=== PATIENT | male | born 1955 | race Caucasian/White ===

== ENCOUNTER 2019-09-21 09:03 | Day surgery (SDC) | payer MEDICARE, BC ==
[~2019-09-21 09:03] MED LIST: Acetaminophen 325 MG Tab PO SCH; Bisacodyl 5 MG Tab PO PRN; Lactated Ringers 1,000 ML IV SCH; Lidocaine 1%/Sod Bicarbonate in NS 8.4% 1 ML Syringe IDERM PRN; Magnesium Hydroxide 400 MG/5 ML Susp 30 ML Cup PO PRN; Morphine 2 MG/ML SYRINGE IVPUSH PRN; Morphine Sulfate 8 MG, EPINEPHrine 0.3 MG, Cefuroxime 750 MG, Ketorolac 30 MG, Sodium C... PRN; Naloxone 0.4 MG/ML SDV IVPUSH PRN; Ondansetron 4 MG/2 ML SDV IVPUSH PRN; Pregabalin 25 MG Cap PO SCH; Sennosides 8.6 MG Tab PO PRN; Sodium Chloride 0.9% 10 ML Syringe FLUSH PRN; oxyCODONE ER 10 MG TAB.ER PO SCH
[2019-09-21] MEDS ORDERED: Iodine/Sodium Iodide 2% Tincture 30 ML Bottle ONE (09:30)
[2019-09-21] MEDS ORDERED: Bupivacaine 0.25% 10 ML SDV ONE (09:30)
[2019-09-21] MEDS ORDERED: ceFAZolin 1 GM Vial ONE ×2 (09:30→09:55)
[2019-09-21] MEDS ORDERED: Vancomycin 1 GM SDV ONE (09:30)
--- NOTE | 2019-09-21 09:30 | PCM.PREANE ---
Preanesthetic Assessment - Procedure Proposed Procedure: right total knee replacement - Anesthesia/Transfusion/Family Hx Anesthesia History: Prior Anesthesia Without Reaction Family History of Anesthesia Reaction: No Transfusion History: No Prior Transfusion(s) - Review of Systems General: No Symptoms Pulmonary: No Symptoms Cardiovascular: No Symptoms Gastrointestinal: No Symptoms Neurological: No Symptoms Other: Reports: None, Sinus Problem (allergic rhinitis) - Physical Assessment NPO Status Date: 09/20/19 NPO Status Time: 19:00 Vital Signs: 136/103 79 96% 16 97.6 Height: 5 ft 10 in Weight: 101.3 kg ASA Class: 2 Mental Status: Alert & Oriented x3 Airway Class: Mallampati = 2 Dentition: Reports: Normal Dentition Thyro-Mental Finger Breadths: 3 Mouth Opening Finger Breadths: 3 ROM/Head Extension: Full Lungs: Clear to Auscultation, Normal Respiratory Effort Cardiovascular: Regular Rate, Regular Rhythm - Lab Values: Laboratory Last Values MRSA (PCR) Negative 09/15/19 14:54 - Allergies Allergies/Adverse Reactions: Allergies Allergy/AdvReac Type Severity Reaction Status Date / Time No Known Allergies Allergy Verified 09/20/19 06:53 - Blood Blood Available: No - Acknowledgements Anesthesia Type Planned: Spinal Pt an Appropriate Candidate for the Planned Anesthesia: Yes Alternatives and Risks of Anesthesia Discussed w Pt/Guardian: Yes Pt/Guardian Understands and Agrees with Anesthesia Plan: Yes PreAnesthesia Questionnaire HEENT History: Reports: Other (See Below) (wears glasses) Cardiovascular History: Reports: High Cholesterol Respiratory History: Reports: None, Sleep Apnea (cpap) Gastrointestinal History: Reports: GERD (used to not now) Psychiatric History: Reports: None Oncologic (Cancer) History: Reports: None - Past Surgical History Neurological Surgical History: Reports: Other (See Below) (back surgery- L4-5 fused 2012) Musculoskeletal Surgical History: Reports: Other (See Below) (right arm surgery) - History Comment History Comment: lipitor home meds - SUBSTANCE USE Smoking Status *Q: Never Smoker Tobacco Use Within Last Twelve Months: No Second Hand Smoke Exposure: No Days Per Week of Alcohol Use: 1 Recreational Drug Use History: No - CURRENT (IN HOUSE) MEDS Current Meds: Current Medications Acetaminophen (Tylenol) 975 mg PO ONETIME MICHAEL Stop: 09/21/19 14:00 Aspirin (Ecotrin) 325 mg PO BID MICHAEL Bisacodyl (Dulcolax) 5 mg PO DAILY PRN PRN Reason: Constipation Morphine Sulfate 8 mg/Epinephrine HCl 0.3 mg/Cefuroxime Sodium 750 mg/Ketorolac Tromethamine 30 mg/Sodium Chloride 7.9 ml 0 mg .XX ASDIRECTED PRN PRN Reason: Pain Stop: 09/21/19 12:00 Cyclobenzaprine HCl (Flexeril) 10 mg PO TID PRN PRN Reason: Spasms Docusate Sodium (Colace) 100 mg PO BID MICHAEL Famotidine (Pepcid) 20 mg PO Q12H [facility] Lactated Ringer's (Ringers, Lactated) 1,000 mls @ 125 mls/hr IV ASDIRECTED MICHAEL Stop: 09/21/19 23:00 Cefazolin Sodium/Dextrose 2 gm (/ Premix) 50 mls @ 100 mls/hr IV Q8H [facility] Stop: 09/21/19 23:29 Ketorolac Tromethamine (Toradol) 15 mg IVPUSH Q6H PRN PRN Reason: Pain Lidocaine/Sodium Bicarbonate (Buffered Lidocaine 1% In Ns 8.4%) 0.25 ml IDERM ONETIME PRN PRN Reason: Prior to IV Start Stop: 09/21/19 18:00 Magnesium Hydroxide (Milk Of Magnesia) 30 ml PO BID PRN PRN Reason: Constipation Morphine Sulfate (Morphine) 2 mg IVPUSH Q2H PRN PRN Reason: Breakthrough Pain Naloxone HCl (Narcan) 0.1 mg IVPUSH Q5M PRN PRN Reason: Oversedation Ondansetron HCl (Zofran) 4 mg IVPUSH Q6H PRN PRN Reason: Nausea/Vomiting Oxycodone HCl (Oxycontin) 10 mg PO ONETIME [facility] Stop: 09/21/19 14:00 Oxycodone/Acetaminophen (Percocet 325-5 Mg) 1 - 2 tab PO Q4H PRN PRN Reason: Pain Pregabalin (Lyrica) 50 mg PO ONETIME [facility] Stop: 09/21/19 14:00 Senna (Senna) 8.6 mg PO BID PRN PRN Reason: Constipation Sodium Chloride (Saline Flush) 10 ml FLUSH ASDIRECTED PRN PRN Reason: Keep Vein Open Stop: 09/21/19 18:00
[2019-09-21] MEDS ORDERED: Lidocaine 1% 4 ML ONE (09:54)
[2019-09-21] MEDS ORDERED: Propofol 200 MG/20 ML SDV ONE (09:55)
[2019-09-21] MEDS ORDERED: Midazolam 1 MG/ML 2 ML SDV ONE ×2 (09:55→10:40)
[2019-09-21] MEDS ORDERED: Ondansetron 4 MG/2 ML SDV ONE (09:55)
[2019-09-21] MEDS ORDERED: fentaNYL 100 MCG/2 ML SDV ONE (09:55)
[2019-09-21] MEDS ORDERED: Lactated Ringers 1,000 ML ONE (10:57)
[2019-09-21] MEDS ORDERED: Ondansetron 4 MG/2 ML SDV IVPUSH PRN (11:54)
[2019-09-21] MEDS ORDERED: Ketorolac 30 MG/ML SDV ONE (11:58)
[2019-09-21] MEDS ORDERED: Ropivacaine 0.5% 5 MG/ML 30 ML SDV ONE (12:28)
[2019-09-21] MEDS ORDERED: EPINEPHrine 1 MG/ML SDV ONE (12:28)
--- NOTE | 2019-09-21 12:33 | PCM.POSTAN ---
POST ANESTHESIA ASSESSMENT - MENTAL STATUS Mental Status: Alert, Oriented - VITAL SIGNS Vital Signs: Last Vital Signs Temp 36.4 C 09/21/19 09:00 Pulse 79 09/21/19 09:00 Resp 16 09/21/19 09:00 BP 136/103 H 09/21/19 09:00 Pulse Ox 96 09/21/19 09:00 - RESPIRATORY Respiratory Status: Respiratory Rate WNL, Airway Patent, O2 Saturation Stable - CARDIOVASCULAR CV Status: Pulse Rate WNL, Blood Pressure Stable - GASTROINTESTINAL GI Status: No Symptoms - PAIN Pain Score: 0 - POST OP HYDRATION Hydration Status: Adequate & Stable
--- NOTE | 2019-09-21 12:58 | PCM.SN.2 ---
- Free Text/Narrative Note: Right selective femoral nerve block at the adductor canal for post-procedure pain control under US guidance requested by Dr. Du. Date: 09/21/19 Time Out: 1235 Start: 1236 End: 1241 Chart reviewed. Consent signed. Questions answered. Appropriate monitors applied. Time out performed. The skin was prepped with chlorahexadine times 1. Right mid-shaft femur identified with ultrasound, scanning medially of femur, the femoral artery in the adductor canal visualized, and the femoral nerve located laterally to the artery. The skin was prepped lateral to the ultrasound probe with chlorahexadine times one. The 21ga 4 insulated block needle was inserted under direct ultrasound guidance into the adductor canal. Positive blood aspiration with first aspiration attempt. Needle redirected. 25mL of 0.5% ropivacaine with 1:200,000 epinephrine was injected circumferentially around the nerve with intermittent negative aspiration noted. Patient tolerated the procedure well. Sterile technique noted along with sterile gloves, mask, and sterile probe cover. See picture on progress note and vital signs on nurses notes. Block completed in PACU. Shalom Alcala CRNA
--- NOTE | 2019-09-21 13:11 | PCM48HPAN ---
Post Anesthesia Note - EVALUATION WITHIN 48HRS OF ANESTHETIC Vital Signs in Normal Range: Yes Patient Participated in Evaluation: Yes Respiratory Function Stable: Yes Airway Patent: Yes Cardiovascular Function Stable: Yes Hydration Status Stable: Yes Pain Control Satisfactory: Yes Nausea and Vomiting Control Satisfactory: Yes Mental Status Recovered: Yes Vital Signs: Last Vital Signs Temp 36.3 C 09/21/19 12:40 Pulse 72 09/21/19 12:55 Resp 11 L 09/21/19 12:55 BP 125/81 09/21/19 12:55 Pulse Ox 97 09/21/19 12:55
[2019-09-21] MEDS: Acetaminophen/oxyCODONE 325-5 MG Tab PO PRN ×3 (14:28→22:58)
--- NOTE | 2019-09-21 15:05 | CR ---
Right knee: AP and lateral views of the right knee were obtained. Comparison: No prior knee exam. Knee prosthesis is seen. Components are aligned. Underlying bony structures are intact. Soft tissue are noted from the surgical procedure. Impression: 1. Satisfactory postop radiographic appearance of recently placed right knee prosthesis. Diagnostic code #2 This report was dictated in MDT
[2019-09-21] MEDS: ceFAZolin 2 GM in Premix Bag 1 BAG IV SCH (18:00)
[2019-09-21] MEDS: Docusate Sodium 100 MG Cap PO SCH (20:16)
[2019-09-21] MEDS: Famotidine 20 MG Tab PO SCH (20:16)
[2019-09-21] MEDS: Ketorolac 15 MG/ML SDV IVPUSH PRN (20:40)
[2019-09-22] MEDS: Cyclobenzaprine 10 MG Tab PO PRN ×2 (01:42→10:36)
[2019-09-22] MEDS: ceFAZolin 2 GM in Premix Bag 1 BAG IV SCH ×2 (01:43→10:28)
[2019-09-22] MEDS: Ketorolac 15 MG/ML SDV IVPUSH PRN ×2 (02:18→09:19)
[2019-09-22] MEDS: Acetaminophen/oxyCODONE 325-5 MG Tab PO PRN ×2 (02:58→06:56)
[2019-09-22] MEDS ORDERED: Acetaminophen 325 MG Tab PO PRN (07:39)
--- NOTE | 2019-09-22 07:48 | PCM.SURGPN ---
- General Info Date of Service: 09/22/19 POD#: 1 Functional Status: Reports: Tolerating Diet, Ambulating, Urinating, Incentive Spirometry, Other (The pt reports to nursing that he has increased pain this morning.) - Review of Systems Pulmonary: Denies: Shortness of Breath, Cough Cardiovascular: Denies: Chest Pain Gastrointestinal: Denies: Abdominal Pain Genitourinary: Reports: Other (Pt states he is urinating without complaint.) - Patient Data Vitals - Most Recent: Last Vital Signs Temp 98.6 F 09/22/19 03:01 Pulse 80 09/22/19 03:01 Resp 18 09/22/19 03:01 BP 103/68 09/22/19 03:01 Pulse Ox 93 L 09/22/19 03:01 Weight - Most Recent: 223 lb 5.252 oz I&O - Last 24 Hours: Intake & Output 09/21/19 09/22/19 09/22/19 22:59 06:59 14:59 Intake Total 200 Output Total 0 Balance 200 Lab Results Last 24 Hrs: Laboratory Results - last 24 hr 09/22/19 09/22/19 Range/Units 05:32 05:32 WBC 6.70 (4.23-9.07) K/mm3 RBC 3.95 L (4.63-6.08) M/mm3 Hgb 11.5 L (13.7-17.5) gm/dl Hct 36.2 L (40.1-51.0) % MCV 91.6 (79.0-92.2) fl MCH 29.1 (25.7-32.2) pg MCHC 31.8 L (32.2-35.5) g/dl RDW Std Deviation 48.3 H (35.1-43.9) fL Plt Count 180 (163-337) K/mm3 MPV 9.3 L (9.4-12.3) fl Sodium 137 (136-145) mEq/L Potassium 4.1 (3.5-5.1) mEq/L Chloride 104 (98-107) mEq/L Carbon Dioxide 27 (21-32) mEq/L Anion Gap 10.1 (5-15) BUN 18 (7-18) mg/dL Creatinine 1.2 (0.7-1.3) mg/dL Est Cr Clr Drug Dosing 63.37 mL/min Estimated GFR (MDRD) > 60 (>60) mL/min BUN/Creatinine Ratio 15.0 (14-18) Glucose 116 H (80-115) mg/dL Calcium 7.9 L (8.5-10.1) mg/dL Total Bilirubin 0.3 (0.2-1.0) mg/dL AST 11 L (15-37) U/L ALT 17 (16-63) U/L Alkaline Phosphatase 46 (46-116) U/L Total Protein 5.3 L (6.4-8.2) g/dl Albumin 2.6 L (3.4-5.0) g/dl Globulin 2.7 gm/dL Albumin/Globulin Ratio 1.0 (1-2) Med Orders - Current: Current Medications Acetaminophen (Tylenol) 650 mg PO Q4H PRN PRN Reason: Pain Aspirin (Ecotrin) 325 mg PO BID [facility] Bisacodyl (Dulcolax) 5 mg PO DAILY PRN PRN Reason: Constipation Cyclobenzaprine HCl (Flexeril) 10 mg PO TID PRN PRN Reason: Spasms Last Admin: 09/22/19 01:42 Dose: 10 mg Documented by: Docusate Sodium (Colace) 100 mg PO BID [facility] Last Admin: 09/21/19 20:16 Dose: 100 mg Documented by: Famotidine (Pepcid) 20 mg PO Q12H [facility] Last Admin: 09/21/19 20:16 Dose: 20 mg Documented by: Cefazolin Sodium/Dextrose 2 gm (/ Premix) 50 mls @ 100 mls/hr IV Q8H [facility] Stop: 09/22/19 10:29 Last Admin: 09/22/19 01:43 Dose: 100 mls/hr Documented by: Ketorolac Tromethamine (Toradol) 15 mg IVPUSH Q6H PRN PRN Reason: Pain Last Admin: 09/22/19 02:18 Dose: 15 mg Documented by: Magnesium Hydroxide (Milk Of Magnesia) 30 ml PO BID PRN PRN Reason: Constipation Morphine Sulfate (Morphine) 2 mg IVPUSH Q2H PRN PRN Reason: Breakthrough Pain Naloxone HCl (Narcan) 0.1 mg IVPUSH Q5M PRN PRN Reason: Oversedation Ondansetron HCl (Zofran) 4 mg IVPUSH Q6H PRN PRN Reason: Nausea/Vomiting Oxycodone HCl (Oxycodone) 5 - 15 mg PO Q4H PRN PRN Reason: Pain Senna (Senna) 8.6 mg PO BID PRN PRN Reason: Constipation Simvastatin (Zocor) 5 mg PO DAILY [facility] Vit A/Vit C/Vit E/Selen/Cu/Zn/Lutei (Icaps Mv) 1 tab PO DAILY [facility] Discontinued Medications Acetaminophen (Tylenol) 975 mg PO ONETIME MICHAEL Stop: 09/21/19 14:00 Last Admin: 09/21/19 09:25 Dose: 975 mg Documented by: Bupivacaine HCl (Sensorcaine-Mpf 0.25%) Confirm Administered Dose 30 ml .ROUTE .STK-MED ONE Stop: 09/21/19 09:31 Last Admin: 09/21/19 12:00 Dose: 30 ml Documented by: Cefazolin Sodium (Ancef) Confirm Administered Dose 2 gm .ROUTE .STK-MED ONE Stop: 09/21/19 09:31 Last Admin: 09/21/19 11:53 Dose: 2 gm Documented by: Cefazolin Sodium (Ancef) Confirm Administered Dose 2 gm .ROUTE .STK-MED ONE Stop: 09/21/19 09:56 Morphine Sulfate 8 mg/Epinephrine HCl 0.3 mg/Cefuroxime Sodium 750 mg/Ketorolac Tromethamine 30 mg/Sodium Chloride 7.9 ml 0 mg .XX ASDIRECTED PRN PRN Reason: Pain Stop: 09/21/19 12:00 Last Admin: 09/21/19 12:00 Dose: 788.3 mg Documented by: Epinephrine HCl (Adrenalin) Confirm Administered Dose 1 mg .ROUTE .STK-MED ONE Stop: 09/21/19 12:29 Fentanyl (Sublimaze) Confirm Administered Dose 100 mcg .ROUTE .STK-MED ONE Stop: 09/21/19 09:56 Lactated Ringer's (Ringers, Lactated) 1,000 mls @ 125 mls/hr IV ASDIRECTED MICHAEL Stop: 09/21/19 23:00 Last Admin: 09/21/19 09:25 Dose: 125 mls/hr Documented by: Lidocaine HCl (Xylocaine-Mpf 1%) Confirm Administered Dose 4 mls @ as directed .ROUTE .STK-MED ONE Stop: 09/21/19 09:55 Lactated Ringer's (Ringers, Lactated) Confirm Administered Dose 1,000 mls @ as directed .ROUTE .STK-MED ONE Stop: 09/21/19 10:58 Iodine (Iodine 2% Mild Tincture) Confirm Administered Dose 30 ml .ROUTE .STK-MED ONE Stop: 09/21/19 09:31 Last Admin: 09/21/19 11:51 Dose: 18 ml Documented by: Ketorolac Tromethamine (Toradol) Confirm Administered Dose 30 mg .ROUTE .STK-MED ONE Stop: 09/21/19 11:59 Lidocaine/Sodium Bicarbonate (Buffered Lidocaine 1% In Ns 8.4%) 0.25 ml IDERM ONETIME PRN PRN Reason: Prior to IV Start Stop: 09/21/19 18:00 Last Admin: 09/21/19 09:34 Dose: 0.25 ml Documented by: Midazolam HCl (Versed 1 Mg/Ml) Confirm Administered Dose 2 mg .ROUTE .STK-MED ONE Stop: 09/21/19 09:56 Midazolam HCl (Versed 1 Mg/Ml) Confirm Administered Dose 2 mg .ROUTE .STK-MED ONE Stop: 09/21/19 10:41 Non-Formulary Medication (Ubidecarenone) 1 cap PO DAILY MICHAEL Ondansetron HCl (Zofran) Confirm Administered Dose 4 mg .ROUTE .STK-MED ONE Stop: 09/21/19 09:56 Ondansetron HCl (Zofran) 4 mg IVPUSH ONETIME PRN PRN Reason: Nausea/Vomiting Stop: 09/21/19 16:00 Oxycodone HCl (Oxycontin) 10 mg PO ONETIME [facility] Stop: 09/21/19 14:00 Last Admin: 09/21/19 09:25 Dose: 10 mg Documented by: Oxycodone/Acetaminophen (Percocet 325-5 Mg) 1 - 2 tab PO Q4H PRN PRN Reason: Pain Last Admin: 09/22/19 06:56 Dose: 2 tab Documented by: Pregabalin (Lyrica) 50 mg PO ONETIME MICHAEL Stop: 09/21/19 14:00 Last Admin: 09/21/19 09:25 Dose: 50 mg Documented by: Propofol (Diprivan 20 Ml) Confirm Administered Dose 600 mg .ROUTE .STK-MED ONE Stop: 09/21/19 09:56 Ropivacaine (Naropin 0.5%) Confirm Administered Dose 30 ml .ROUTE .STK-MED ONE Stop: 09/21/19 12:29 Sodium Chloride (Saline Flush) 10 ml FLUSH ASDIRECTED PRN PRN Reason: Keep Vein Open Stop: 09/21/19 18:00 Tranexamic Acid (Cyklokapron) Confirm Administered Dose 1,000 mg .ROUTE .STK-MED ONE Stop: 09/21/19 09:31 Last Admin: 09/21/19 12:05 Dose: 1,000 mg Documented by: Vancomycin HCl (Vancomycin) Confirm Administered Dose 1 gm .ROUTE .STK-MED ONE Stop: 09/21/19 09:31 Last Admin: 09/21/19 12:02 Dose: 1 gm Documented by: - Exam Wound/Incisions: Dressing Dry and Intact General: Alert, Cooperative, No Acute Distress Lungs: Normal Respiratory Effort Extremities: Other (NVS intact for BLE. Sherie's negative for BLE.) Sepsis Event Note - Evaluation Sepsis Screening Result: No Definite Risk - Focused Exam Vital Signs: Vital Signs Temp Pulse Resp BP Pulse Ox 09/22/19 03:01 98.6 F 80 18 103/68 93 L 09/21/19 22:54 98.2 F 82 114/65 95 09/21/19 20:13 98.1 F 120/71 Date Exam was Performed: 09/22/19 Time Exam was Performed: 07:46 - Problem List Review Problem List Initiated/Reviewed/Updated: Yes - My Orders Last 24 Hours: Active Orders 24 hr Category Date Time Status Patient Status [ADT] Routine ADT 09/21/19 06:49 Active Ambulate [RC] DAILY Care 09/21/19 06:48 Active Antiembolic Devices [RC] BID Care 09/21/19 06:49 Active Communication Order [RC] ASDIRECTED Care 09/22/19 07:41 Ordered Communication Order [RC] DAILY Care 09/21/19 11:54 Active May Shower [RC] DAILY Care 09/21/19 06:48 Active Notify Provider [RC] PRN Care 09/21/19 11:54 Active Oxygen Therapy [RC] PRN Care 09/21/19 06:49 Active Pulse Oximetry [RC] ASDIRECTED Care 09/21/19 11:54 Active RT Incentive Spirometry [RC] Q1HWA Care 09/21/19 06:48 Active Ready for Discharge [RC] PER UNIT ROUTINE Care 09/22/19 07:46 Ordered Up to Chair [RC] DAILY Care 09/21/19 06:48 Active Vital Signs [RC] Q4HR Care 09/21/19 06:49 Active OT Evaluation and Treatment [CONS] Routine Cons 09/21/19 06:48 Active PT Evaluation and Treatment [CONS] Routine Cons 09/21/19 06:48 Active Regular Diet [DIET] Diet 09/21/19 Lunch Active Acetaminophen [Tylenol] Med 09/22/19 07:39 Ordered 650 mg PO Q4H PRN Aspirin [Ecotrin] Med 09/22/19 09:00 Active 325 mg PO BID Cyclobenzaprine [Flexeril] Med 09/21/19 06:48 Active 10 mg PO TID PRN Docusate Sodium [Colace] Med 09/21/19 21:00 Active 100 mg PO BID Famotidine [Pepcid] Med 09/21/19 21:00 Active 20 mg PO Q12H Ketorolac [Toradol] Med 09/21/19 18:00 Active 15 mg IVPUSH Q6H PRN Magnesium Hydroxide [Milk of Magnesia] Med 09/21/19 06:48 Active 30 ml PO BID PRN Morphine Med 09/21/19 06:48 Active 2 mg IVPUSH Q2H PRN Multivitamins/Min/FA/Lut/Zeax [ICaps MV] Med 09/22/19 09:00 Active 1 tab PO DAILY Naloxone [Narcan] Med 09/21/19 06:48 Active 0.1 mg IVPUSH Q5M PRN Ondansetron [Zofran] Med 09/21/19 06:48 Active 4 mg IVPUSH Q6H PRN Sennosides [Senna] Med 09/21/19 06:48 Active 8.6 mg PO BID PRN Simvastatin [Zocor] Med 09/22/19 09:00 Active 5 mg PO DAILY bisacodyL [Dulcolax] Med 09/21/19 06:48 Active 5 mg PO DAILY PRN ceFAZolin [Ancef] 2 gm Med 09/21/19 18:00 Active Premix Bag 1 bag IV Q8H oxyCODONE Med 09/22/19 07:39 Ordered 5 - 15 mg PO Q4H PRN Antiembolic Hose [OM.PC] Per Unit Routine Oth 09/21/19 06:50 Ordered Antiembolic Hose [OM.PC] Routine Oth 09/21/19 06:48 Ordered Ice Therapy [OM.PC] Per Unit Routine Oth 09/21/19 06:49 Ordered Sequential Compression Device [OM.PC] Per Unit Routine Oth 09/21/19 06:48 Ordered Resuscitation Status Routine Resus Stat 09/21/19 06:48 Ordered Medication Orders Acetaminophen (Tylenol) 650 mg PO Q4H PRN PRN Reason: Pain Aspirin (Ecotrin) 325 mg PO BID [facility] Bisacodyl (Dulcolax) 5 mg PO DAILY PRN PRN Reason: Constipation Cyclobenzaprine HCl (Flexeril) 10 mg PO TID PRN PRN Reason: Spasms Last Admin: 09/22/19 01:42 Dose: 10 mg Documented by: GIGI Docusate Sodium (Colace) 100 mg PO BID [facility] Last Admin: 09/21/19 20:16 Dose: 100 mg Documented by: ZENY Famotidine (Pepcid) 20 mg PO Q12H [facility] Last Admin: 09/21/19 20:16 Dose: 20 mg Documented by: ZENY Cefazolin Sodium/Dextrose 2 gm (/ Premix) 50 mls @ 100 mls/hr IV Q8H [facility] Stop: 09/22/19 10:29 Last Admin: 09/22/19 01:43 Dose: 100 mls/hr Documented by: Infusion: 09/21/19 18:30 Dose: 100 mls/hr Documented by: Admin: 09/21/19 18:00 Dose: 100 mls/hr Documented by: CAROLINA Ketorolac Tromethamine (Toradol) 15 mg IVPUSH Q6H PRN PRN Reason: Pain Last Admin: 09/22/19 02:18 Dose: 15 mg Documented by: Admin: 09/21/19 20:40 Dose: 15 mg Documented by: ZENY Magnesium Hydroxide (Milk Of Magnesia) 30 ml PO BID PRN PRN Reason: Constipation Morphine Sulfate (Morphine) 2 mg IVPUSH Q2H PRN PRN Reason: Breakthrough Pain Naloxone HCl (Narcan) 0.1 mg IVPUSH Q5M PRN PRN Reason: Oversedation Ondansetron HCl (Zofran) 4 mg IVPUSH Q6H PRN PRN Reason: Nausea/Vomiting Oxycodone HCl (Oxycodone) 5 - 15 mg PO Q4H PRN PRN Reason: Pain Senna (Senna) 8.6 mg PO BID PRN PRN Reason: Constipation Simvastatin (Zocor) 5 mg PO DAILY MICHAEL Vit A/Vit C/Vit E/Selen/Cu/Zn/Lutei (Icaps Mv) 1 tab PO DAILY [facility] - Assessment Assessment (Free Text/Narrative):: POD#1 - right TKA - Plan Plan (Free Text/Narrative):: 1. Hgb 11.5. 2. ASA 325mg PO BID, frequent mobility, TEDs. 3. d/c Perc and will trial oxycodone 5mg 1 to 3 tab PO every 4 hours for pain management. Pt may have acetaminophen. 4. Outpatient therapy. The pt's case was discussed with Dr. Du.
--- NOTE | 2019-09-22 07:54 | PCM48HPAN ---
Post Anesthesia Note - EVALUATION WITHIN 48HRS OF ANESTHETIC Vital Signs in Normal Range: Yes Patient Participated in Evaluation: Yes Respiratory Function Stable: Yes Airway Patent: Yes Cardiovascular Function Stable: Yes Hydration Status Stable: Yes Pain Control Satisfactory: Yes (Hurts but tolerating it and wants to go home. ) Nausea and Vomiting Control Satisfactory: Yes Mental Status Recovered: Yes Vital Signs: Last Vital Signs Temp 37.0 C 09/22/19 03:01 Pulse 80 09/22/19 03:01 Resp 18 09/22/19 03:01 BP 103/68 09/22/19 03:01 Pulse Ox 93 L 09/22/19 03:01
[2019-09-22] MEDS: oxyCODONE 5 MG Tab PO PRN ×2 (08:38→12:13)
[2019-09-22] MEDS ORDERED: UBIDECARENONE PO SCH (09:00)
[2019-09-22] MEDS ORDERED: Simvastatin 10 MG Tab PO SCH (09:00)
[2019-09-22] MEDS ORDERED: Aspirin 325 MG Tab.EC PO SCH (09:00)
[2019-09-22] MEDS ORDERED: Multivitamins with Minerals/Folic Acid/Lutein/Zeaxanth Tab PO SCH (09:00)
[2019-09-22] MEDS: Famotidine 20 MG Tab PO SCH (09:19)
[2019-09-22] MEDS: Docusate Sodium 100 MG Cap PO SCH (09:19)
--- NOTE | 2019-09-24 07:50 | PCM.OPNOTE ---
- General Post-Op/Procedure Note Date of Surgery/Procedure: 09/21/19 Operative Procedure(s): right total knee arthroplasty Pre Op Diagnosis: right knee osteoarthrosis Post-Op Diagnosis: Same Anesthesia Technique: Local, MAC, Spinal Primary Surgeon: Babar Du Anesthesia Provider: Shalom Alcala Carpet Or Rug Layer Helper: Tamiko Mo Carpet Or Rug Layer Helper: Zulema Ruth in mLs: 450 Complications: None Condition: Good Free Text/Narrative:: 6 5 9mm 35x10
--- NOTE | 2019-09-24 08:13 | OR ---
DATE OF OPERATION: 09/21/2019 SURGEON: Babar Du MD OPERATION PERFORMED: Right total knee arthroplasty. PREOPERATIVE DIAGNOSIS: Right knee osteoarthrosis. POSTOPERATIVE DIAGNOSIS: Right knee osteoarthrosis. ANESTHESIA: Local MAC with spinal. ANESTHESIA PROVIDER: Shalom Alcala CRNA [employer]DEL [employer]KER APPRENTICE: Tamiko Mo PA-C; and Zulema Ruth LPN. ESTIMATED BLOOD LOSS: 450 mL. COMPLICATIONS: None. CONDITION: Stable. IMPLANTS: 1. [place] size 6 press-fit CR femur. 2. Mellissa size 5 press-fit tibial base plate. 3. [place] size 5 9 mm CS polyethylene insert. 4. Mellissa size 35 x 10 mm press fit asymmetric patella. DESCRIPTION OF PROCEDURE: The patient was identified in the preop holding area. Proper site was marked and identified by the surgeon. The patient was taken back to the operating theater. After adequate anesthesia, the patient's right lower extremity had a nonsterile tourniquet applied and it was sterilely prepped and draped in the usual sterile fashion. OR time-out was performed. The patient received 2 g IV Ancef. At this time, the right lower extremity was exsanguinated. Tourniquet was insufflated to 300 mmHg. Standard medial parapatellar incision was made. Medial parapatellar arthrotomy was created. Deep fibers of the MCL were raised and anterior fat pad was resected. At this time, attention was turned to the patella. Patella measured 25, it was resected to a 14 for a 35 x 10 mm patella. Drill holes were then drilled and found to be in adequate position. The drill was then drilled in the distal femur and the intramedullary distal femoral cutting guide was then placed. 8 mm was resected off the distal femur and was found to be an adequate resection. Sizing guide was placed. It was found to be a size 6 press-fit CR femur that was shown on the implant record at the beginning of this dictation. The drill holes were drilled for the epicondylar axis using Whitesides line and epicondyles as reference. At this time, the 4-in- 1 cutting block was placed. An anterior posterior and anterior and posterior chamfer cuts were then completed. Attention was turned to the tibia. The posterior medial lateral retractors were placed. The extramedullary tibial guide was placed. It was placed in the old footprint of the ACL. It was aligned with the center of the ankle and 0 degrees of slope, 9 mm was then resected off the unaffected side. There was found to be an acceptable reduction. At this time, posterior osteophytes were removed along with medial and lateral meniscus. A trial implant was placed with a correct sized tibia that was mentioned at the beginning of the dictation. A Mellissa size 5 9 mm CS polyethylene insert was then placed. The patient's knee was brought through range of motion. The patella was tracking centrally and was stable to varus and valgus stress. Alignment was found to be roughly at 0 degrees. The tibia was stamped and drilled in proper rotation. The universal tibial base plate was impacted in place. Next, the Mellissa size 6 press-fit CR femur impacted into place and the [place] size 5 9 mm CS polyethylene insert was placed. The patient's knee was brought into full extension. The patella was then press-fit in place at this time. Tourniquet was deflated. One liter dilute Betadine solution was irrigated through the knee along with 3 L of pulse lavage irrigation with Ancef. Periarticular injection was then completed. The patient's knee was brought through a range of motion. Knee was found to be stable to varus valgus stress, the patella was tracking centrally with full range of motion. At this time, a #2 barbed suture was used for closure of the medial parapatellar arthrotomy. Topical tranexamic acid was placed. 2-0 Vicryl was used subcutaneously, Prineo was used for the skin. The patient tolerated the procedure well and was sent to the PACU in stable condition. GUERDA /[id number] MTDD
== END 2019-09-22 13:47 | disposition home or self-care (01) ==
LOC: JD.SDS 09:03 → JD.MS 09:05 → JD.SDS 09-22 13:47
PROVIDERS: ATTEND Orthopaedic Surgery
DX: M17.11 Unilateral primary osteoarthritis, right knee (principal); G89.29 Other chronic pain; E78.00 Pure hypercholesterolemia, unspecified; K21.9 Gastro-esophageal reflux disease without esophagitis; E78.2 Mixed hyperlipidemia; G47.33 Obstructive sleep apnea (adult) (pediatric); R23.3 Spontaneous ecchymoses; M85.89 Other specified disorders of bone density and structure, multiple sites; Z79.899 Other long term (current) drug therapy; Z99.89 Dependence on other enabling machines and devices
CPT/HCPCS: 27447; 36415; 73560; 80053; 85027; 87641; 97110; 97116; 97161; 97165; 97535; A9270; C1776; J0171; J0690; J0697; J1885; J2001; J2250; J2270; J2405; J2704; J2795; J3010; J3370; J3490; J7120; 01402; 64450

== ENCOUNTER → 2019-11-23 | Day surgery (SDC) | payer MEDICARE, BC ==
[~2019-11-23] MED LIST changes: +Aspirin 325 MG Tab.EC PO SCH; +Bupivacaine 0.25% 10 ML SDV ONE; +Cyclobenzaprine 10 MG Tab PO PRN; +Docusate Sodium 100 MG Cap PO SCH; +EPINEPHrine 1 MG/ML SDV ONE; +Famotidine 20 MG Tab PO SCH; +Ketorolac 15 MG/ML SDV IVPUSH PRN; -Lactated Ringers 1,000 ML IV SCH; +Lactated Ringers 1,000 ML ONE; +Midazolam 1 MG/ML 2 ML SDV ONE; -Morphine 2 MG/ML SYRINGE IVPUSH PRN; +Morphine 8 MG, EPINEPHrine 0.3 MG, Cefuroxime 750 MG, Ketorolac 30 MG, Sodium Chloride ... PRN; -Morphine Sulfate 8 MG, EPINEPHrine 0.3 MG, Cefuroxime 750 MG, Ketorolac 30 MG, Sodium C... PRN; -Naloxone 0.4 MG/ML SDV IVPUSH PRN; +Ondansetron 4 MG/2 ML SDV ONE; +Propofol 200 MG/20 ML SDV ONE; +Ropivacaine 0.5% 5 MG/ML 30 ML SDV ONE; +Vancomycin 1 GM SDV ONE; +ceFAZolin 1 GM Vial ONE; +ceFAZolin 2 GM in Premix Bag 1 BAG IV SCH; +fentaNYL 100 MCG/2 ML SDV IVPUSH PRN; +fentaNYL 100 MCG/2 ML SDV ONE
[2019-11-23] MEDS: Lactated Ringers 1,000 ML IV SCH ×2 (11:00→14:43)
--- NOTE | 2019-11-23 11:03 | PCM.PREANE ---
Preanesthetic Assessment - Anesthesia/Transfusion/Family Hx Anesthesia History: Prior Anesthesia Without Reaction Family History of Anesthesia Reaction: No Transfusion History: No Prior Transfusion(s) - Review of Systems General: Other (has tested positive for covid in past) Pulmonary: Other (MORENO with CPAP usage at night) Cardiovascular: No Symptoms Gastrointestinal: Other (GERD, gastritis) Neurological: Other (hx of back surgery) Other: Reports: None - Physical Assessment NPO Status Date: 11/22/19 NPO Status Time: 17:30 Weight: 99.7 kg ASA Class: 2 Mental Status: Alert & Oriented x3 Airway Class: Mallampati = 2 Dentition: Reports: Normal Dentition Thyro-Mental Finger Breadths: 3 Mouth Opening Finger Breadths: 3 ROM/Head Extension: Full Lungs: Clear to Auscultation, Normal Respiratory Effort Cardiovascular: Regular Rate, Regular Rhythm - Lab Values: Laboratory Last Values MRSA (PCR) Negative 11/18/19 14:25 - Allergies Allergies/Adverse Reactions: Allergies Allergy/AdvReac Type Severity Reaction Status Date / Time No Known Allergies Allergy Verified 11/20/19 14:06 - Blood Blood Available: No Product(s) Available: None - Anesthesia Plan Pre-Op Medication Ordered: None - Acknowledgements Anesthesia Type Planned: Spinal Pt an Appropriate Candidate for the Planned Anesthesia: Yes Alternatives and Risks of Anesthesia Discussed w Pt/Guardian: Yes Pt/Guardian Understands and Agrees with Anesthesia Plan: Yes PreAnesthesia Questionnaire HEENT History: Reports: Allergic Rhinitis, Hard of Hearing, Sinusitis, Other (See Below) Other HEENT History: wears glasses Cardiovascular History: Reports: High Cholesterol Respiratory History: Reports: Sleep Apnea Gastrointestinal History: Reports: Diverticulosis, Gastritis, GERD, Other (See Below) Other Gastrointestinal History: colon neoplasm, reflux, thrombosed hemorrhoids Genitourinary History: Reports: Other (See Below) Other Genitourinary History: hematuria, frequency CLAIM TAKER History: Reports: None Musculoskeletal History: Reports: Osteoarthritis, Other (See Below) Other Musculoskeletal History: olcranon bursitis, left knee pain, crush injury Neurological History: Reports: Other (See Below) Other Neuro History: spinal stenosis Psychiatric History: Reports: None Endocrine/Metabolic History: Reports: None Hematologic History: Reports: None Immunologic History: Reports: None Oncologic (Cancer) History: Reports: None Dermatologic History: Reports: Other (See Below) Other Dermatologic History: nevus - Past Surgical History HEENT Surgical History: Reports: Oral Surgery Cardiovascular Surgical History: Reports: None Respiratory Surgical History: Reports: None GI Surgical History: Reports: Colonoscopy, Other (See Below) Other GI Surgeries/Procedures: polypectomy Female Surgical History: Reports: None Male Surgical History: Reports: None Endocrine Surgical History: Reports: None Neurological Surgical History: Reports: Other (See Below) Other Neurological Surgeries/Procedures: L4L5 fusion Musculoskeletal Surgical History: Reports: Other (See Below) Other Musculoskeletal Surgeries/Procedures:: RTK, right arm surgery Oncologic Surgical History: Reports: None Dermatological Surgical History: Reports: None - History Comment History Comment: lipitor home meds - SUBSTANCE USE Smoking Status *Q: Never Smoker Recreational Drug Use History: No - HOME MEDS Home Medications: Home Meds Ubidecarenone [Co Q-10] 1 cap PO DAILY 09/21/19 [History] Vit A/Vit C/Vit E/Zinc/Copper [Preservision Areds Softgel] 1 cap PO DAILY 09/21/19 [History] atorvaSTATin [Lipitor] 5 mg PO DAILY 09/21/19 [History] Cholecalciferol (Vitamin D3) [Vitamin D3] 5,000 unit PO DAILY 11/20/19 [History] Multivitamin 1 tab PO DAILY 11/20/19 [History] Aspirin [Ecotrin EC] 325 mg PO BID #84 tab.ec 11/23/19 [Rx] Cyclobenzaprine [Flexeril] 10 mg PO BID PRN #20 tablet 11/23/19 [Rx] Docusate Sodium [Colace] 100 mg PO BID cap 11/23/19 [Rx] Famotidine [Pepcid] 20 mg PO Q12H tablet 11/23/19 [Rx] Magnesium Hydroxide [Milk of Magnesia] 30 ml PO BID PRN cup 11/23/19 [Rx] Sennosides [Senna] 8.6 mg PO BID PRN tablet 11/23/19 [Rx] Tapentadol HCl [Nucynta] 50 - 100 mg PO Q4H PRN #40 tablet 11/23/19 [Rx] bisacodyL [Dulcolax] 5 mg PO DAILY PRN tablet 11/23/19 [Rx] - CURRENT (IN HOUSE) MEDS Current Meds: Current Medications Acetaminophen (Tylenol) 975 mg PO ONETIME [facility] Stop: 11/23/19 16:00 Last Admin: 11/23/19 10:48 Dose: 975 mg Documented by: Aspirin (Ecotrin) 325 mg PO BID MICHAEL Bisacodyl (Dulcolax) 5 mg PO DAILY PRN PRN Reason: Constipation Morphine Sulfate 8 mg/Epinephrine HCl 0.3 mg/Cefuroxime Sodium 750 mg/Ketorolac Tromethamine 30 mg/Sodium Chloride 7.9 ml 0 mg .XX ASDIRECTED PRN PRN Reason: Pain Stop: 11/23/19 14:00 Cyclobenzaprine HCl (Flexeril) 10 mg PO TID PRN PRN Reason: Spasms Docusate Sodium (Colace) 100 mg PO BID MICHAEL Famotidine (Pepcid) 20 mg PO Q12H [facility] Lactated Ringer's (Ringers, Lactated) 1,000 mls @ 125 mls/hr IV ASDIRECTED MICHAEL Stop: 11/23/19 23:00 Cefazolin Sodium/Dextrose 2 gm (/ Premix) 50 mls @ 100 mls/hr IV Q8H [facility] Stop: 11/23/19 22:29 Ketorolac Tromethamine (Toradol) 15 mg IVPUSH Q6H PRN PRN Reason: Pain Lidocaine/Sodium Bicarbonate (Buffered Lidocaine 1% In Ns 8.4%) 0.25 ml IDERM ONETIME PRN PRN Reason: Prior to IV Start Stop: 11/23/19 18:00 Magnesium Hydroxide (Milk Of Magnesia) 30 ml PO BID PRN PRN Reason: Constipation Oxycodone HCl (Oxycontin) 10 mg PO ONETIME [facility] Stop: 11/23/19 14:00 Last Admin: 11/23/19 10:48 Dose: 10 mg Documented by: Pregabalin (Lyrica) 50 mg PO ONETIME [facility] Stop: 11/23/19 14:00 Last Admin: 11/23/19 10:48 Dose: 50 mg Documented by: Senna (Senna) 8.6 mg PO BID PRN PRN Reason: Constipation Sodium Chloride (Saline Flush) 10 ml FLUSH ASDIRECTED PRN PRN Reason: Keep Vein Open Stop: 11/23/19 18:00 Discontinued Medications Cefazolin Sodium (Ancef) Confirm Administered Dose 1 gm .ROUTE .STK-MED ONE Stop: 11/23/19 09:40 Epinephrine HCl (Adrenalin) Confirm Administered Dose 1 mg .ROUTE .STK-MED ONE Stop: 11/23/19 07:46 Fentanyl (Sublimaze) Confirm Administered Dose 100 mcg .ROUTE .STK-MED ONE Stop: 11/23/19 09:37 Lactated Ringer's (Ringers, Lactated) Confirm Administered Dose 1,000 mls @ as directed .ROUTE .STK-MED ONE Stop: 11/23/19 09:36 Midazolam HCl (Versed 1 Mg/Ml) Confirm Administered Dose 2 mg .ROUTE .STK-MED ONE Stop: 11/23/19 09:37 Ondansetron HCl (Zofran) Confirm Administered Dose 4 mg .ROUTE .STK-MED ONE Stop: 11/23/19 09:36 Propofol (Diprivan 20 Ml) Confirm Administered Dose 600 mg .ROUTE .STK-MED ONE Stop: 11/23/19 09:37 Ropivacaine (Naropin 0.5%) Confirm Administered Dose 30 ml .ROUTE .STK-MED ONE Stop: 11/23/19 07:46
--- NOTE | 2019-11-23 13:55 | PCM.POSTAN ---
POST ANESTHESIA ASSESSMENT - MENTAL STATUS Mental Status: Alert, Oriented - VITAL SIGNS Vital Signs: Last Vital Signs Temp 36.6 C 11/23/19 10:40 Pulse 77 11/23/19 10:40 Resp 16 11/23/19 10:40 BP 145/97 H 11/23/19 10:40 Pulse Ox 98 11/23/19 10:40 - RESPIRATORY Respiratory Status: Respiratory Rate WNL, Airway Patent, O2 Saturation Stable, Supplemental Oxygen - CARDIOVASCULAR CV Status: Pulse Rate WNL, Blood Pressure Stable - GASTROINTESTINAL GI Status: No Symptoms - PAIN Pain Score: 0 - POST OP HYDRATION Hydration Status: Adequate & Stable
--- NOTE | 2019-11-23 14:12 | PCM.SN.2 ---
- Free Text/Narrative Note: Left selective femoral nerve block at the adductor canal for post-procedure pain control under US guidance requested by Dr. Du. Date: 11/23/19 Time Out: 1403 Start: 1403 End: 1406 Chart reviewed. Consent signed. Questions answered. Appropriate monitors applied. Time out performed. Left mid-shaft femur identified with ultrasound, scanning medially of femur, the femoral artery in the adductor canal visualized, and the femoral nerve located laterally to the artery. The skin was prepped lateral to the ultrasound probe with chlorahexadine times two. The 21ga 4 insulated block needle was inserted under direct ultrasound guidance into the adductor canal. 25mL of 0.5% ropivacaine with 1:200,000 epinephrine was injected circumferentially around the nerve with intermittent negative aspiration noted. Patient tolerated the procedure well. Sterile technique noted along with sterile gloves, mask, and sterile probe cover. See picture on progress note and vital signs on nurses notes. Block completed in PACU.
--- NOTE | 2019-11-23 15:17 | PCM48HPAN ---
Post Anesthesia Note - EVALUATION WITHIN 48HRS OF ANESTHETIC Vital Signs in Normal Range: Yes Patient Participated in Evaluation: Yes Respiratory Function Stable: Yes Airway Patent: Yes Cardiovascular Function Stable: Yes Hydration Status Stable: Yes Pain Control Satisfactory: Yes Nausea and Vomiting Control Satisfactory: Yes Mental Status Recovered: Yes Vital Signs: Last Vital Signs Temp 36.5 C 11/23/19 14:50 Pulse 56 L 11/23/19 14:50 Resp 16 11/23/19 14:50 BP 123/81 11/23/19 14:50 Pulse Ox 97 11/23/19 14:50
--- NOTE | 2019-11-23 15:34 | CR ---
Left knee: AP and lateral views of the left knee were obtained. Comparison: No prior left knee study. Knee prosthesis is seen. Components are aligned. Soft tissue air is noted from the surgical procedure. Underlying bony structures are intact. Impression: 1. Satisfactory postop radiographic appearance of recently placed left knee prosthesis. Diagnostic code #1 This report was dictated in MDT
--- NOTE | 2019-11-23 17:22 | PCM.OPNOTE ---
- General Post-Op/Procedure Note Date of Surgery/Procedure: 11/23/19 Operative Procedure(s): left total knee arthroplasty Pre Op Diagnosis: left knee osteoarthrosis Post-Op Diagnosis: Same Anesthesia Technique: Local, MAC, Spinal Primary Surgeon: Babar Du Anesthesia Provider: Marie Fitzgerald Photo Booth Operator: Tamiko Mo EBL in mLs: 250 Complications: None Condition: Good Free Text/Narrative:: Intake & Output 11/23/19 11/23/19 11/23/19 06:59 14:59 22:59 Intake Total 150 Balance 150 6 femur 5 tibia 9mm 35x10 press fit
--- NOTE | 2019-11-25 11:30 | PCM.SN.2 ---
- Free Text/Narrative Note: Date: 11/25/2019 Time Out: 0854 Start: 0858 Stop: 902 Surgical Procedure: Left Reverse Total shoulder arthroplasty Diagnosis Left Rotator cuff arthropathy Current Procedure: Right interscalene block under US guidance for postoperative pain control requested by Dr. Du. Patient chart reviewed, risk/benefits discussed with patient, consent obtained. Patient positioned supine, monitors/alarms on, oxygen placed via nasal cannula at 2 LPM. IV sedation administered: Versed 2 mg IV, Fentanyl 100 mcg IV given in preop prior to block placement. Left shoulder prepped with two chloropreps. Sterile drapes placed with aseptic technique noted. Under US guidance, right subclavian artery visualized along with the right brachial plexus. Plexus followed up to C6 cricoid level, and area localized with 3 mls of 1% lidocaine. 22gauge 2 inch stimiplex needle advanced under US with 0.6mV with stimulation of biceps noted. Good stimulation noted with decreased voltage and absent at 0.3mVs. 1ml of Normal Saline injected with loss of stimulation noted to confirm needle not placed intraneurally. Incremental dosing of 5mls with negative aspiration noted prior to each injection of 0.5% ropivacaine with 1:200,000 epinephrine. Total volume=30mls. Tolerated procedure well. Please refer to nurses noted for vital signs. Shalom Alcala CRNA
--- NOTE | 2019-11-30 09:32 | OR ---
DATE OF OPERATION: 11/23/2019 SURGEON: Babar Du MD OPERATION PERFORMED: Left total knee arthroplasty. PREOPERATIVE DIAGNOSIS: Left knee osteoarthrosis. POSTOPERATIVE DIAGNOSIS: Left knee osteoarthrosis. ANESTHESIA: Local MAC with spinal. ANESTHESIA PROVIDER: Marie Fitzgerald CRNA SURGICAL SCRUB TECHNICIAN: Tamiko Mo PA-C ESTIMATED BLOOD LOSS: 250 mL. COMPLICATIONS: None. CONDITION: Stable. IMPLANTS: 1. Mellissa size 6 press-fit CR femur. 2. [place] size 5 press-fit tibial base plate. 3. Mellissa size 5, 9 mm CS polyethylene insert. 4. Mellissa size 35 x 10 mm press-fit asymmetric patella. DESCRIPTION OF PROCEDURE: The patient was identified in the preop holding area. Proper site was marked and identified by the surgeon. The patient was taken back to the operating theater. After adequate anesthesia, the patient's left lower extremity had a nonsterile tourniquet applied and it was sterilely prepped and draped in the usual sterile fashion. OR time-out was performed. The patient received 2 g IV Ancef. At this time, the left lower extremity was exsanguinated. Tourniquet was insufflated to 300 mmHg. Standard medial parapatellar incision was made. Medial parapatellar arthrotomy was created. Deep fibers of the MCL were raised and anterior fat pad was resected. At this time, attention was turned to the patella. Patella measured 25, it was resected to a 15 for a 35 x 10 mm patella. Drill holes were then drilled and found to be in adequate position. The drill was then drilled in the distal femur and the intramedullary distal femoral cutting guide was then placed. 8 mm was resected off the distal femur and was found to be an adequate resection. Sizing guide was placed. It was found to be a size 6 press-fit CR femur that was shown on the implant record at the beginning of this dictation. The drill holes were drilled for the epicondylar axis using [place]ites[place] line and epicondyles as reference. At this time, the 4-in- 1 cutting block was placed. An anterior posterior and anterior and posterior chamfer cuts were then completed. Attention was turned to the tibia. The posterior medial lateral retractors were placed. The extramedullary tibial guide was placed. It was placed in the old footprint of the ACL. It was aligned with the center of the ankle and 0 degrees of slope, 9 mm was then resected off the unaffected side. There was found to be an acceptable reduction. At this time, posterior osteophytes were removed along with medial and lateral meniscus. A trial implant was placed with a correct sized tibia that was mentioned at the beginning of the dictation. A [place] size 5, 9 mm CS polyethylene insert was then placed. The patient's knee was brought through range of motion. The patella was tracking centrally and was stable to varus and valgus stress. Alignment was found to be roughly at 0 degrees. The tibia was stamped and drilled in proper rotation. The universal tibial base plate was impacted in place. Next, the [place] size 6 press-fit CR femur impacted into place and the [place] size 5, 9 mm CS polyethylene insert was placed. The patient's knee was brought into full extension. The patella was then press-fit in place at this time. Tourniquet was deflated. Irricept was irrigated through the knee. One liter dilute Betadine solution was irrigated through the knee along with 3 L of pulse lavage irrigation with Ancef. Periarticular injection was then completed. The patient's knee was brought through a range of motion. Knee was found to be stable to varus valgus stress, the patella was tracking centrally with full range of motion. At this time, a #2 barbed suture was used for closure of the medial parapatellar arthrotomy. Topical tranexamic acid was placed. 2-0 Vicryl was used subcutaneously, Prineo was used for the skin. The patient tolerated the procedure well and was sent to the PACU in stable condition. GUERDA /[id number] NIA
== END | disposition home or self-care (01) ==
LOC: JD.SDS 10:42
PROVIDERS: ATTEND Orthopaedic Surgery
DX: M17.12 Unilateral primary osteoarthritis, left knee (principal); E78.2 Mixed hyperlipidemia; G47.33 Obstructive sleep apnea (adult) (pediatric); M48.061 Spinal stenosis, lumbar region without neurogenic claudication; G89.18 Other acute postprocedural pain; K21.9 Gastro-esophageal reflux disease without esophagitis; Z86.010 Personal history of colon polyps; Z82.49 Family history of ischemic heart disease and other diseases of the circulatory system; Z79.899 Other long term (current) drug therapy; Z79.82 Long term (current) use of aspirin
CPT/HCPCS: 27447; 73560; 87641; 97110; 97116; 97161; A9270; C1776; J0171; J0690; J0697; J1885; J2250; J2270; J2405; J2704; J2795; J3370; J3490; J7120; 01402; 64450; J3010

== ENCOUNTER 2019-11-24 09:21 | Emergency (ER) | payer MEDICARE, BC ==
--- NOTE | 2019-11-24 09:51 | EDM.PDOC ---
ED HPI GENERAL MEDICAL PROBLEM - General Chief Complaint: ENT Problem Stated Complaint: SWOLLEN EPIGLOTTIS/THROAT PROBLEMS Time Seen by Provider: 11/24/19 09:37 Source of Information: Reports: Patient History Limitations: Reports: No Limitations - History of Present Illness INITIAL COMMENTS - FREE TEXT/NARRATIVE: 64-year-old male presents to the ED for evaluation of sore throat. He feels a swelling in the back of his throat even with talking. Patient did undergo a left total knee replacement in our hospital yesterday. He therefore was intubated for general anesthesia. He denies any change in his voice. Not short of breath. He reports he does use a CPAP machine at nighttime to help sleep and it was off for a few hours during the night. He feels a pressure discomfort in the back of his throat with some difficulty swallowing. Occasional cough which is nonproductive. Onset: Gradual Onset Date: 11/24/19 (First appreciated pressure in the back of his throat about 2200 hrs. last night.) Duration: Hour(s):, Getting Worse Location: Reports: Face (Feels a pressure discomfort or swelling in the back of his throat. Denies cough or sputum production) Quality: Reports: Other (Swelling pressure more) Severity: Moderate (burning discomfort with swallowing.) Improves with: Reports: Rest Worsens with: Reports: Other (Swallowing.) Context: Reports: Trauma (Patient did undergo general anesthetic yesterday for left total knee replacement and was intubated of course. Therefore he is potentially suffered trauma to his epiglottis and uvula). Denies: Activity, Exercise, Lifting, Sick Contact Associated Symptoms: Reports: Cough. Denies: Confusion, Chest Pain, cough w sputum (Mild cough nonproductive), Diaphoresis, Fever/Chills, Headaches, Loss of Appetite, Malaise, Nausea/Vomiting, Rash, Seizure, Shortness of Breath, Syncope, Weakness Treatments CEREAL MILLER: Reports: Other (see below) (Currently on Nucynta for left knee pain postop total knee replacement) - Related Data Allergies Allergy/AdvReac Type Severity Reaction Status Date / Time No Known Allergies Allergy Verified 11/24/19 09:32 Home Meds: Home Meds Ubidecarenone [Co Q-10] 1 cap PO DAILY 09/21/19 [History] Vit A/Vit C/Vit E/Zinc/Copper [Preservision Areds Softgel] 1 cap PO DAILY 09/21/19 [History] atorvaSTATin [Lipitor] 5 mg PO DAILY 09/21/19 [History] Cholecalciferol (Vitamin D3) [Vitamin D3] 5,000 unit PO DAILY 11/20/19 [History] Multivitamin 1 tab PO DAILY 11/20/19 [History] Aspirin [Ecotrin EC] 325 mg PO BID #84 tab.ec 11/23/19 [Rx] Cyclobenzaprine [Flexeril] 10 mg PO BID PRN #20 tablet 11/23/19 [Rx] Docusate Sodium [Colace] 100 mg PO BID cap 11/23/19 [Rx] Famotidine [Pepcid] 20 mg PO Q12H tablet 11/23/19 [Rx] Magnesium Hydroxide [Milk of Magnesia] 30 ml PO BID PRN cup 11/23/19 [Rx] Sennosides [Senna] 8.6 mg PO BID PRN tablet 11/23/19 [Rx] Tapentadol HCl [Nucynta] 50 - 100 mg PO Q4H PRN #40 tablet 11/23/19 [Rx] bisacodyL [Dulcolax] 5 mg PO DAILY PRN tablet 11/23/19 [Rx] dexAMETHasone [Dexamethasone] 4 mg PO Q12H #6 tab 11/24/19 [Rx] Past Medical History HEENT History: Reports: Allergic Rhinitis, Hard of Hearing, Sinusitis, Other (See Below) Other HEENT History: wears glasses Cardiovascular History: Reports: High Cholesterol Respiratory History: Reports: Sleep Apnea Gastrointestinal History: Reports: Diverticulosis, Gastritis, GERD, Other (See Below) Other Gastrointestinal History: colon neoplasm, reflux, thrombosed hemorrhoids Genitourinary History: Reports: Other (See Below) Other Genitourinary History: hematuria, 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 History: Reports: None Musculoskeletal History: Reports: Osteoarthritis, Other (See Below) Other Musculoskeletal History: olcranon bursitis, left knee pain, crush injury Neurological History: Reports: Other (See Below) Other Neuro History: spinal stenosis Psychiatric History: Reports: None Endocrine/Metabolic History: Reports: None Hematologic History: Reports: None Immunologic History: Reports: None Oncologic (Cancer) History: Reports: None Dermatologic History: Reports: Other (See Below) Other Dermatologic History: nevus - Infectious Disease History Infectious Disease History: Reports: Chicken Pox, Measles, Mumps, Novel Coronavirus - Past Surgical History HEENT Surgical History: Reports: Oral Surgery Cardiovascular Surgical History: Reports: None Respiratory Surgical History: Reports: None GI Surgical History: Reports: Colonoscopy, Other (See Below) Other GI Surgeries/Procedures: polypectomy Neurological Surgical History: Reports: Other (See Below) Other Neurological Surgeries/Procedures: L4L5 fusion Musculoskeletal Surgical History: Reports: Other (See Below) Other Musculoskeletal Surgeries/Procedures:: RTK, right arm surgery - History Comment History Comment: lipitor home meds Social & Family History - Tobacco Use Smoking Status *Q: Never Smoker Second Hand Smoke Exposure: No - Caffeine Use Caffeine Use: Reports: Coffee - Recreational Drug Use Recreational Drug Use: No - Living Situation & Occupation Living situation: Reports: Occupation: Retired ED ROS ENT - Review of Systems Review Of Systems: See Below Constitutional: Reports: Fatigue. Denies: Fever, Chills, Malaise, Weakness, Decreased Appetite, Weight Loss (Mild.) HEENT: Reports: Glasses, Throat Pain (Throat discomfort), Throat Swelling ( postop.). Denies: Ear Pain, Hearing Loss, Nosebleed, Nose Pain, Rhinitis, Sinus Problem, Vertigo, Vision Change ( Aware of the swelling in the back of his throat.) Respiratory: Reports: Cough (Occasional nonproductive cough. More throat clearing.). Denies: Shortness of Breath, Wheezing, Pleuritic Chest Pain, Sputum Cardiovascular: Reports: No Symptoms Endocrine: Reports: No Symptoms GI/Abdominal: Reports: No Symptoms : Reports: Frequency, Other (Nocturia usually x2.) Musculoskeletal: Reports: Joint Pain (He is postop left total knee replacement with expected postoperative pain. Patient has had the right knee replaced within the last 6 months as well. Patient has had previous lumbar spine surgery. He has diffuse neck pain from osteoarthritic change.) Skin: Reports: Bruising Neurological: Reports: No Symptoms (Postoperative bruising left knee.) Psychiatric: Reports: No Symptoms Hematologic/Lymphatic: Reports: No Symptoms Immunologic: Reports: No Symptoms ED EXAM, ENT - Physical Exam Exam: See Below Exam Limited By: No Limitations General Appearance: Alert, WD/WN, No Apparent Distress, Other (Temperature is 36.3. Heart rate is 92 and sinus respiratory rate is 18 with O2 sats of 98% room air BP 03/15/1960.) Eye Exam: Bilateral Eye: Normal Inspection, PERRL Ears: Normal TMs Mouth/Throat: Normal Gums, Normal Lips, Normal Teeth, Uvular Edema (And has significant edema of his uvula probably 3 times to 4 times normal size. There is also bleeding from the very tip of the uvula suggesting recent trauma. Whether this occurred from intubation procedure or his CPAP machine overnight is impossible to tell. Suspect that it is traumatic if edema post general anesthesia and intubation.). No: Normal Inspection, Normal Oropharynx, Hoarse Voice, Lip Swelling, Lip Ulcers, Muffled Voice, Peritonsillar Mass, Pharyngeal Erythema Head: Atraumatic, Normocephalic Neck: Normal Inspection, Supple, Non-Tender, Full Range of Motion Respiratory/Chest: No Respiratory Distress, Lungs Clear, Normal Breath Sounds, No Accessory Muscle Use Cardiovascular: Normal Peripheral Pulses, Regular Rate, Rhythm, No Edema, No Gallop, No Murmur, No Rub Extremities: Other (Patient has his left leg bandaged with Randy wraps up over the thigh. Swelling in the lower anterior quadriceps.) Course - Vital Signs Last Recorded V/S: Last Vital Signs Temp 36.3 C 11/24/19 09:30 Pulse 92 11/24/19 09:30 Resp 18 11/24/19 09:30 BP 119/59 L 11/24/19 09:30 Pulse Ox 98 11/24/19 09:30 - Radiology Interpretation Free Text/Narrative:: 64-year-old male presents to the ED with a sensation of swelling in the back of his throat. He underwent general anesthetic yesterday for left total knee replacement here in [place]. Patient also uses a CPAP machine at nighttime to aid sleep due to sleep apnea. States he was off for a few hours during the night. On examination he has uvulitis. This is significant edema of the uvula likely postoperative in origin. There is bleeding from the very tip of the uvula which he has not appreciated in terms of coughing up or spitting up blood. The remainder the oropharynx shows no signs of edema or swelling. Phonation is normal. No cervical adenopathy. Plan dexamethasone 4 mg twice daily for 3 days to reduce inflammation and swelling of the uvula. He will continue all his regular medications as per usual including Nucynta for his left knee pain postop. Departure - Departure Time of Disposition: :47 Disposition: Home, Self-Care 01 Condition: Fair Clinical Impression: Uvulitis - Discharge Information *PRESCRIPTION DRUG MONITORING PROGRAM REVIEWED*: Not Applicable *COPY OF PRESCRIPTION DRUG MONITORING REPORT IN PATIENT RACHEL: Not Applicable Prescriptions: dexAMETHasone [Dexamethasone] 4 mg PO Q12H #6 tab Instructions: Uvulitis Referrals: Anthony Jones MD [Primary Care Provider] - Forms: ED Department Discharge Additional Instructions: Evaluation in the emergency room in regards to sore throat with swelling. Voice is normal. You are 1 day postop left total knee replacement. Examination reveals edema or swelling of the uvula with pinpoint bleeding from the tip of the uvula suggesting that it was traumatized during the intubation procedure for general anesthetic yesterday. The remainder of your throat is normal with no swelling. Continue all current medications. Suggest use of dexamethasone 4 mg tablet twice daily usually breakfast and supper for 3 days to reduce inflammation and swelling of the uvula. You should start appreciated difference usually in about 6 hours from the time you take the first tablet. Sepsis Event Note (ED) - Evaluation Sepsis Screening Result: No Definite Risk - Focused Exam Vital Signs: Vital Signs Temp Pulse Resp BP Pulse Ox 11/24/19 09:30 36.3 C 92 18 119/59 L 98
== END 2019-11-24 10:00 | disposition home or self-care (01) ==
LOC: JD.ED 09:21
DX: K12.2 Cellulitis and abscess of mouth (principal); E78.00 Pure hypercholesterolemia, unspecified; K21.9 Gastro-esophageal reflux disease without esophagitis; M19.90 Unspecified osteoarthritis, unspecified site; Z96.652 Presence of left artificial knee joint; Z79.82 Long term (current) use of aspirin; Z79.899 Other long term (current) drug therapy
CPT/HCPCS: 99283